=== PATIENT | male | born 1935 | race Caucasian/White ===

== ENCOUNTER → 2016-08-08 | Outpatient (CLI) | payer OTHER ==
[~2016-08-08] MED LIST: AMITRIPTYLINE H10 M3 PO; ASPIRIN325 PO; CALCIUM 1,0001 EACH PO; COUMADIN 2 MG TA2 M1; CYCLOBENZAPRINE10 MG PO; ELIQUIS5 MG PO; GLUCOSAMINE CH1 EAC7 PO; HYDROCODON-ACE1 EAC7 PO; HYDROCODONE-AP1 EAC6 PO; HYDROCODONE-APA1 TA1 PO; KEFLEX500 MG PO; LISINOPRIL20 MG PO; METOPROLOL SUCC25 M1 PO; NEPHROCAPS QT1 EACH PO; NEURONTIN 300300 M1 PO; NORCO 10-325 T1 EACH; POTASSIUM99 M1 PO; PRINIVIL20 MG PO; PRINIVIL5 MG; SINEMET 10-1001 EAC1 PO; TOPROL XL25 MG PO; VITAMIN E1000 UNI3 PO; VITAMINC500 PO
== END ==
LOC: MRI 07-30 09:01
DX: R42 Dizziness and giddiness (principal); R26.2 Difficulty in walking, not elsewhere classified; H44.529 Atrophy of globe, unspecified eye; R48.2 Apraxia

== ENCOUNTER → 2017-01-08 | Outpatient (CLI) | payer OTHER ==
--- NOTE | ~2017-01-08 | 2DMMODE ---
[facility] [place] [employer] [place] [address] 2 D/M-MODE ECHOCARDIOGRAM Name: MINDY LOVE EUREKA Room #: REG [facility]#: [id number] Admission: 01/08/17 Attend Phys: Paul Quezada Discharge: Date of : 37 Date of Service: 01/08/17 1109 Report #: [id number] THIS REPORT FOR: //name// APPROVED REPORT Study performed: 01/08/2017 10:33:19 EXAM: Comprehensive 2D, Doppler, and color-flow Echocardiogram Patient Location: Out-Patient Status: routine BSA: 2.13 HR: 73 bpm BP: 160/82 mmHg Rhythm: NSR Other Information Study Quality: Adequate Indications Pre-Op Hx: HTN, Afib 2D Dimensions RVDd: 33.35 mm LVEF(%): 76.72 (>50%) IVSd: 10.70 (7-11mm) LVOT Diam: 21.75 (18-24mm) LVDd: 44.43 mm PWd: 11.05 (7-11mm) Ascending Ao: 35.46 (22-36mm) LVDs: 24.34 (25-40mm) Aortic Root: 36.96 mm Galdamez's LVEF: 76.72 % Volumes Left Atrial Volume (Systole) Single Plane 4CH: 39.30 mL Single Plane 2CH: 61.76 mL LA ESV Index: 27.00 mL/m2 Aortic Valve AoV Peak Manny.: 2.01 m/s AO Peak Gr.: 16.15 mmHg LVOT Max P.59 mmHg AO Mean Gr.: 9.16 mmHg AO V2 Mean: 1.46 m/s LVOT Max V: 1.28 m/s AO V2 VTI: 43.24 cm JOSE Vmax: 2.37 cm2 [facility] [place] [address] 2 D/M-MODE ECHOCARDIOGRAM Name: MINDY LOVE EUREKA Room #: REG [facility]#: [id number] Admission: 01/08/17 Attend Phys: Paul Quezada Discharge: Date of : 37 Date of Service: 01/08/17 1109 Report #: [id number] Mitral Valve E/A Ratio: 0.8 MV Decel. Time: 229.62 ms MV E Max Manny.: 0.93 m/s MV A Manny.: 1.13 m/s MV PHT: 66.59 ms IVRT: 64.59 ms Pulmonary Valve PV Peak Manny.: 1.25 m/s PV Peak Gr.: 6.25 mmHg Tricuspid Valve TR Peak Manny.: 2.62 m/s TR Peak Gr.: 27.45 mmHg Left Ventricle The left ventricle is normal size. There is normal LV segmental wall motion. There is normal left ventricular wall thickness. Left ventricular systolic function is normal. LVEF is 60%. Mild diastolic dysfunction is present (impaired relaxation pattern). Right Ventricle The right ventricle is normal size. The right ventricular systolic function is normal. Atria The left atrium size is normal. The right atrium size is normal. Aortic Valve Aortic valve is calcified. Trace aortic regurgitation. There is no aortic valvular stenosis. Mitral Valve The mitral valve is normal in structure. Mild mitral annular calcification. Trace mitral regurgitation. No significant mitral valve stenosis. Tricuspid Valve The tricuspid valve is normal in structure. Trace to mild tricuspid regurgitation. Estimated PAP is 27mmHg plus the right atrial pressure. Pulmonic Valve Pulmonic valve is not well visualized. [facility] [address] [place] [address] 2 D/M-MODE ECHOCARDIOGRAM Name: MINDY LOVE GREGG Room #: REG [facility].#: [id number] Admission: 01/08/17 Attend Phys: Paul Quezada Discharge: Date of : 37 Date of Service: 01/08/17 1109 Report #: [id number] Great Vessels Aortic root measures at the upper limits as normal. The ascending aorta is normal in size. The inferior vena cava is not well visualized. Pericardium There is no pericardial effusion. <Conclusion> The left ventricle is normal size. LVEF is 60%. The right ventricle is normal size. Aortic valve is calcified. Trace aortic regurgitation. There is no aortic valvular stenosis. The mitral valve is normal in structure. Mild mitral annular calcification. Trace mitral regurgitation. No significant mitral valve stenosis. The tricuspid valve is normal in structure. Trace to mild tricuspid regurgitation. Estimated PAP is 27mmHg plus the right atrial pressure. Pulmonic valve is not well visualized. <ELECTRONICALLY SIGNED> By: Paul Flores MD 01/08/17 1109 1109 1109 Paul Flores MD /INF
== END ==
LOC: NUC 07:55
DX: Z01.810 Encounter for preprocedural cardiovascular examination (principal); I10 Essential (primary) hypertension; I48.91 Unspecified atrial fibrillation